=== PATIENT | female | born 1990 | race Caucasian/White ===

== ENCOUNTER 2021-02-25 22:19 | Emergency (ER) | payer SELFPAY ==
[~2021-02-25] VITALS: Ht 170.2 cm; Wt 63.6 kg
[~2021-02-25 22:19] MED LIST: NITR100C62 PO; Sulfamethoxazole/Trimethoprim PO
[2021-02-26] MEDS ORDERED: MORPHINE SULFATE 10 MG/ML VIAL. IV ONE (00:30)
[2021-02-26] MEDS ORDERED: IV NORMAL SALINE 1000ML BAG 1,000 ML IV ONE (00:30)
[2021-02-26] MEDS ORDERED: ONDANSETRON PF 4 MG/2 ML VIAL. IVP ONE (00:30)
[2021-02-26 00:39] LABS: BASO # 0.1 x10^3/uL (0.0-0.2); BASO % 1 % (0-3); EOS # 0.2 x10^3/uL (0.0-0.7); EOS % 2 % (0-3); HEMATOCRIT 43.6 % (36.0-47.0); HEMOGLOBIN 15.5 g/dL (12.0-15.5); LYMPH # 2.1 x10^3/uL (1.0-4.8); LYMPH % 21 % (24-48); MEAN CORPUSCULAR HEMOGLOBIN 33 pg (25-35); MEAN CORPUSCULAR HGB CONC 36 g/dL (31-37); MEAN CORPUSCULAR VOLUME 93 fL (79-100); MONO # 0.6 x10^3/uL (0.0-1.1); MONO % 6 % (0-9); NEUT % 71 % (31-73); PLATELET COUNT 252 x10^3/uL (140-400); RED BLOOD COUNT 4.68 x10^6/uL (3.50-5.40); RED CELL DISTRIBUTION WIDTH 13.1 % (11.5-14.5); WHITE BLOOD COUNT 9.8 x10^3/uL (4.0-11.0)
[2021-02-26 00:45] LABS: CALCIUM 9.2 mg/dL (8.5-10.1); CREATININE 0.9 mg/dL (0.6-1.0); GFR 74.6
--- NOTE | 2021-02-26 00:48 | RAD ---
CT ABDOMEN+PELVIS WO History: Reason: abd pain / Spl. Instructions: / History: Technique: Noncontrast examination of the abdomen and pelvis. Coronal and sagittal reconstructions we re performed. Exposure: One or more of the following individualized dose reduction techniques were utilized for thi s examination: 1. Automated exposure control 2. Adjustment of the mA and/or kV according to patient size 3. Use of iterative reconstruction technique. Comparison: None Findings: Lower chest: No consolidation or pleural effusion. Abdomen and pelvis: The liver, spleen, adrenal glands, and pancreas are unremarkable. Contracted gall bladder. No biliary ductal dilatation. No hydronephrosis. No renal, ureteral or urinary bladder calculi. Phlebolith within the region of the left distal ureter degrading evaluation. Decompressed urinary bladder. Normal appendix. No evidence of bowel obstruction. No pathologic lymphadenopathy. No ascites. Bones: No pathologic osseous lesions. Impression: 1. No acute abdominal or pelvic pathology. Electronically signed by: Arturo Galvez DO (02/26/2021 12:46 AM) [facility]
[2021-02-26 00:51] LABS: ALBUMIN 3.9 g/dL (3.4-5.0); ALBUMIN/GLOBULIN RATIO 1.1 (1.0-1.7); MAGNESIUM 1.9 mg/dL (1.8-2.4); TOTAL BILIRUBIN 0.3 mg/dL (0.2-1.0); TOTAL PROTEIN 7.3 g/dL (6.4-8.2)
[2021-02-26 01:35] VITALS: BP 106/54
[2021-02-26 08:32] LABS: AMPHETAMINE/METHAMPHETAMINE NEG (NEG); BARBITURATES NEG (NEG); BENZODIAZEPINES NEG (NEG); CANNABINOIDS POS (NEG); COCAINE NEG (NEG); METHADONE NEG (NEG); OPIATES POS (NEG); PHENCYCLIDINE NEG (NEG)
[2021-02-26 08:34] LABS: BACTERIA,URINE 0 /HPF (0-FEW); BILIRUBIN,URINE NEGATIVE (NEG); CLARITY,URINE CLEAR; COLOR,URINE YELLOW; NITRITE,URINE NEGATIVE (NEG); PROTEIN,URINE NEGATIVE (NEG-TRACE); RBC,URINE RARE /HPF (0-2); UROBILINOGEN,URINE 0.2 mg/dL (0.2 mg/dL)
--- NOTE | 2021-02-26 22:04 | ED.ADGEN ---
Past Medical History Past Medical History: Asthma, Bipolar, Depression, Migraines, Other Additional Past Medical Histor: spontaneous AB Past Surgical History: Other Additional Past Surgical Histo: d&c, Smoking Status: Current Some Day Smoker Alcohol Use: None Drug Use: None General Adult EDM: Chief Complaint: FLANK PAIN HPI: HPI: Patient is a 30-year-old female who presents to the emergency room complaining of severe flank pain and lower abdominal pain. This is been ongoing for the last 2 to 3 days. She states her urine has been dark and she has had some dysuria. She denies any fevers, chills, sweats, chest pain. She has had a mild cough. She is unsure if this is related to her allergies. She has had some nausea with a single episode of vomiting. She has been eating without difficulty. She has had some mild diarrhea. She states that her abdominal pain is a dull and sometimes sharp pain in nature. She woke up with it a few days ago. Review of Systems: Review of Systems: Complete ROS is negative unless otherwise documented in HPI Current Medications: Current Medications Medications (Trade) Dose Ordered Sig/Nayeli Start Time Stop Time Status Last Admin Dose Admin Morphine Sulfate (Morphine Sulfate) 5 mg 1X ONCE 02/26/21 00:30 02/26/21 00:31 DC 02/26/21 00:31 5 MG Ondansetron HCl (Zofran) 4 mg 1X ONCE 02/26/21 00:30 02/26/21 00:31 DC 02/26/21 00:31 4 MG Sodium Chloride 1,000 ml @ 1,000 mls/hr 1X ONCE 02/26/21 00:30 02/26/21 05:57 DC 02/26/21 00:30 1,000 MLS/HR Allergies: Allergies: Allergies Coded Allergies Type Severity Reaction Last Updated Verified Penicillins Allergy Severe 02/25/21 Yes amoxicillin Allergy Severe hives 07/23/14 No Physical Exam: PE: General: Awake, alert, mild distress. Well Nourished, well hydrated. Cooperative HEENT: Atraumatic, EOMI, PERRL, airway patent, dry oral mucosa Neck: Supple, trachea midline Respiratory: CTA bilaterally, normal effort, no wheezing/crackles CV: Tachycardia, no murmur, cap refill <2 GI: Soft, nondistended, nontender, no masses MSK: No obvious deformities Skin: Warm, dry, intact Neuro: A&O x3, speech NL, sensory and motor grossly intact, no focal deficits Psych: Anxious, not suicidal or homicidal Current Patient Data: Labs: Laboratory Tests Test 02/26/21 00:30 02/26/21 01:20 02/26/21 01:25 White Blood Count 9.8 x10^3/uL (4.0-11.0) Red Blood Count 4.68 x10^6/uL (3.50-5.40) Hemoglobin 15.5 g/dL (12.0-15.5) Hematocrit 43.6 % (36.0-47.0) Mean Corpuscular Volume 93 fL (79-100) Mean Corpuscular Hemoglobin 33 pg (25-35) Mean Corpuscular Hemoglobin Concent 36 g/dL (31-37) Red Cell Distribution Width 13.1 % (11.5-14.5) Platelet Count 252 x10^3/uL (140-400) Neutrophils (%) (Auto) 71 % (31-73) Lymphocytes (%) (Auto) 21 % (24-48) L Monocytes (%) (Auto) 6 % (0-9) Eosinophils (%) (Auto) 2 % (0-3) Basophils (%) (Auto) 1 % (0-3) Neutrophils # (Auto) 7.0 x10^3/uL (1.8-7.7) Lymphocytes # (Auto) 2.1 x10^3/uL (1.0-4.8) Monocytes # (Auto) 0.6 x10^3/uL (0.0-1.1) Eosinophils # (Auto) 0.2 x10^3/uL (0.0-0.7) Basophils # (Auto) 0.1 x10^3/uL (0.0-0.2) Sodium Level 142 mmol/L (136-145) Potassium Level 4.0 mmol/L (3.5-5.1) Chloride Level 104 mmol/L (98-107) Carbon Dioxide Level 28 mmol/L (21-32) Anion Gap 10 (6-14) Blood Urea Nitrogen 14 mg/dL (7-20) Creatinine 0.9 mg/dL (0.6-1.0) Estimated GFR (Cockcroft-Gault) 74.6 BUN/Creatinine Ratio 16 (6-20) Glucose Level 82 mg/dL (70-99) Calcium Level 9.2 mg/dL (8.5-10.1) Magnesium Level 1.9 mg/dL (1.8-2.4) Total Bilirubin 0.3 mg/dL (0.2-1.0) Aspartate Amino Transferase (AST) 20 U/L (15-37) Alanine Aminotransferase (ALT) 22 U/L (14-59) Alkaline Phosphatase 68 U/L (46-116) Total Protein 7.3 g/dL (6.4-8.2) Albumin 3.9 g/dL (3.4-5.0) Albumin/Globulin Ratio 1.1 (1.0-1.7) Lipase 85 U/L (73-393) Urine Collection Type Unknown Urine Color Yellow Urine Clarity Clear Urine pH 7.0 (<5.0-8.0) Urine Specific [place] 1.015 (1.000-1.030) Urine Protein Negative mg/dL (NEG-TRACE) Urine Glucose (UA) Negative mg/dL (NEG) Urine Ketones (Stick) Negative mg/dL (NEG) Urine Blood Trace (NEG) Urine Nitrite Negative (NEG) Urine Bilirubin Negative (NEG) Urine Urobilinogen Dipstick 0.2 mg/dL (0.2 mg/dL) Urine Leukocyte Esterase Trace (NEG) Urine RBC Rare /HPF (0-2) Urine WBC 1-4 /HPF (0-4) Urine Squamous Epithelial Cells Mod /LPF Urine Bacteria 0 /HPF (0-FEW) Urine Opiates Screen Pos (NEG) Urine Methadone Screen Neg (NEG) Urine Barbiturates Neg (NEG) Urine Phencyclidine Screen Neg (NEG) Urine Amphetamine/Methamphetamine Neg (NEG) Urine Benzodiazepines Screen Neg (NEG) Urine Cocaine Screen Neg (NEG) Urine Cannabinoids Screen Pos (NEG) Urine Ethyl Alcohol Neg (NEG) POC Urine HCG, Qualitative Hcg negative (Negative) Laboratory Tests 02/26/21 00:30 Laboratory Tests 02/26/21 00:30 Vital Signs: Vital Signs Date Time Temp Pulse Resp B/P (MAP) Pulse Ox O2 Delivery O2 Flow Rate FiO2 02/26/21 01:35 56 24 106/54 (71) 97 02/26/21 00:31 Room Air 02/25/21 23:00 98.9 98.9 EKG: EKG: [] Heart Score: C/O Chest Pain: N/A Risk Factors: Risk Factors: DM, Current or recent (<one month) smoker, HTN, HLP, family history of CAD, obesity. Risk Scores: Score 0 - 3: 2.5% MACE over next 6 weeks - Discharge Home Score 4 - 6: 20.3% MACE over next 6 weeks - Admit for Clinical Observation Score 7 - 10: 72.7% MACE over next 6 weeks - Early Invasive Strategies Radiology/Procedures: Radiology/Procedures: [] Course & Med Decision Making: Course & Med Decision Making Pertinent Labs and Imaging studies reviewed. (See chart for details) patient is a 30-year-old female who presents to the emergency room complaining of right flank pain, nausea, dysuria. Patient's presentation is concerning for possible kidney stone versus pyelonephritis. Patient does have a mild cough and it is possible this could also be related to viral syndrome not excluding coronavirus 19. Patient is requesting something for pain. Patient was given pain medication, nausea medicine, fluids. Lab work is reassuring and CT does not show signs of a kidney stone or pyelonephritis. Urine does not show signs of a UTI. She is positive for opiates and cannabinoids. It is possible this could be related to a cyclic vomiting syndrome. Patient requested to leave AMA. Patient has requested to leave AGAINST MEDICAL ADVICE. I have discussed the benefits of staying for a full work up and the patient would like to leave. I discussed the risks of leaving including but not limited to , permenant end-organ damage, worsening of condition and patient stated understanding. Patient signed out against medical advice. Didi Disclaimer: Didi Disclaimer: This electronic medical record was generated, in whole or in part, using a voice recognition dictation system. Departure Departure Impression: Primary Impression: Flank pain Disposition: LEFT AGAINST MEDICAL ADVICE Condition: STABLE Referrals: NO PCP (PCP) ANA GALLARDO MD Feb 26, 2021 22:04
== END 2021-02-26 02:35 | disposition left against medical advice (07) ==
LOC: ER 22:19
DX: R10.31 Right lower quadrant pain (principal); R30.0 Dysuria; F31.9 Bipolar disorder, unspecified; G43.909 Migraine, unspecified, not intractable, without status migrainosus; J45.909 Unspecified asthma, uncomplicated; F17.200 Nicotine dependence, unspecified, uncomplicated; Z88.0 Allergy status to penicillin; Z88.1 Allergy status to other antibiotic agents
CPT/HCPCS: 36415; 74176; 80053; 80307; 81001; 81025; 83690; 83735; 85025; 96361; 96374; 96375; 99285; J2270; J2405; J7030

== ENCOUNTER 2021-05-12 11:30 | Emergency (ER) | payer SELFPAY ==
[~2021-05-12] VITALS: Ht 167.6 cm; Wt 61.4 kg
--- NOTE | 2021-05-12 13:07 | PHYS DOC ---
Past Medical History Past Medical History: Asthma, Bipolar, Depression, Migraines, Other Additional Past Medical Histor: spontaneous AB Past Surgical History: No Surgical History, Other Additional Past Surgical Histo: d&c, Smoking Status: Current Some Day Smoker Alcohol Use: None Drug Use: None General Adult EDM: Chief Complaint: ABDOMINAL PAIN HPI: HPI: 30-year-old female with a history of IBS presents the emergency department complaining of right lower quadrant abdominal pain, nausea for the past 5 days. 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 She admits to breathing heavily makes her pain worse. She reports she is also having pain in the left flank and right flank area. The patient denies nausea, vomiting, fever, chills, chest pain, shortness of breath, urinary problems, cough, recent trauma, stool changes, or any other complaints. Review of Systems: Review of Systems: Review of systems as above otherwise negative except for what was mentioned in the HPI Heart Score: C/O Chest Pain: No Family History: Family History: non contributory Allergies: Allergies: Allergies Coded Allergies Type Severity Reaction Last Updated Verified Penicillins Allergy Severe 02/25/21 Yes amoxicillin Allergy Severe hives 07/23/14 No Physical Exam: PE: Constitutional: No acute distress, non-toxic appearance. HENT: Atraumatic, bilateral external ears normal, nose normal. Eyes: PERRLA, EOMI, conjunctiva normal, no discharge. Neck: Normal range of motion, supple, no stridor. Cardiovascular: Heart rate regular rhythm. 2+ radial pulses Lungs & Thorax: No respiratory distress, symmetrical expansion. Bilateral breath sounds clear to auscultation Abdomen: Right lower quadrant tenderness palpation Skin: Warm, dry. Extremities: No tenderness, no cyanosis, ROM intact, no edema. Neurologic: Alert and oriented X 3, normal motor function, normal sensory function, no focal deficits noted. GCS 15. Psychologic: Affect normal, judgment normal, mood normal. Current Patient Data: Labs: Laboratory Tests Test 05/12/21 12:08 05/12/21 12:34 05/12/21 13:42 Urine Collection Type Unknown Urine Color Yellow Urine Clarity Clear Urine pH 7.0 (<5.0-8.0) Urine Specific [place] 1.020 (1.000-1.030) Urine Protein Negative mg/dL (NEG-TRACE) Urine Glucose (UA) Negative mg/dL (NEG) Urine Ketones (Stick) Negative mg/dL (NEG) Urine Blood Small (NEG) Urine Nitrite Negative (NEG) Urine Bilirubin Negative (NEG) Urine Urobilinogen Dipstick 1.0 mg/dL (0.2 mg/dL) Urine Leukocyte Esterase Moderate (NEG) Urine RBC 1-2 /HPF (0-2) Urine WBC 11-20 /HPF (0-4) Urine Squamous Epithelial Cells Mod /LPF Urine Bacteria Moderate /HPF (0-FEW) Urine Mucus Mod /LPF Bedside Urine HCG, Qualitative Hcg negative (Negative) White Blood Count 8.7 x10^3/uL (4.0-11.0) Red Blood Count 4.44 x10^6/uL (3.50-5.40) Hemoglobin 14.2 g/dL (12.0-15.5) Hematocrit 41.3 % (36.0-47.0) Mean Corpuscular Volume 93 fL (79-100) Mean Corpuscular Hemoglobin 32 pg (25-35) Mean Corpuscular Hemoglobin Concent 34 g/dL (31-37) Red Cell Distribution Width 13.4 % (11.5-14.5) Platelet Count 221 x10^3/uL (140-400) Neutrophils (%) (Auto) 80 % (31-73) Lymphocytes (%) (Auto) 10 % (24-48) Monocytes (%) (Auto) 8 % (0-9) Eosinophils (%) (Auto) 2 % (0-3) Basophils (%) (Auto) 1 % (0-3) Neutrophils # (Auto) 6.9 x10^3/uL (1.8-7.7) Lymphocytes # (Auto) 0.9 x10^3/uL (1.0-4.8) Monocytes # (Auto) 0.7 x10^3/uL (0.0-1.1) Eosinophils # (Auto) 0.1 x10^3/uL (0.0-0.7) Basophils # (Auto) 0.0 x10^3/uL (0.0-0.2) Sodium Level 139 mmol/L (136-145) Potassium Level 3.9 mmol/L (3.5-5.1) Chloride Level 104 mmol/L (98-107) Carbon Dioxide Level 29 mmol/L (21-32) Anion Gap 6 (6-14) Blood Urea Nitrogen 6 mg/dL (7-20) Creatinine 0.8 mg/dL (0.6-1.0) Estimated GFR (Cockcroft-Gault) 85.4 BUN/Creatinine Ratio 8 (6-20) Glucose Level 75 mg/dL (70-99) Calcium Level 8.9 mg/dL (8.5-10.1) Total Bilirubin 0.3 mg/dL (0.2-1.0) Aspartate Amino Transf (AST/SGOT) 17 U/L (15-37) Alanine Aminotransferase (ALT/SGPT) 23 U/L (14-59) Alkaline Phosphatase 82 U/L (46-116) Total Protein 7.9 g/dL (6.4-8.2) Albumin 3.4 g/dL (3.4-5.0) Albumin/Globulin Ratio 0.8 (1.0-1.7) Lipase 97 U/L (73-393) Vital Signs: Vital Signs Date Time Temp Pulse Resp B/P (MAP) Pulse Ox O2 Delivery O2 Flow Rate FiO2 05/12/21 14:10 16 99 Room Air 05/12/21 13:00 98.4 68 16 112/61 98 Room Air 98.4 Radiology/Procedures: Radiology/Procedures: CT ABDOMEN+PELVIS W History: abdominal pain rlq Comparison: 02/25/2021 Technique: After administration of intravenous contrast, helical CT of the abdomen and pelvis was performed from the lung bases through the ischial tu berosities. Coronal and sagittal reconstructions were obtained. 75 mL of Omnipaque 300 were used. One or more of the following dose reduction techniques were utilized: Automated exposure control (AEC), Adjustment of mA and/or kV according to patient size, Use of iterative reconstruction technique such as ASiR, CT scan done according to ALARA and image gently/image wisely Abdomen Findings: The visualized lung bases are clear. The liver, gallbladder, pancreas, spleen, and bilateral adrenal glands are normal. Symmetric renal enhancement. There is no focal renal mass. There is no hydronephrosis. The visualized loops of small bowel are normal. The visualized loops of large bowel are normal. There is no evidence of bowel obstruction. Appendix is normal. There is no free fluid. There is no mesenteric or retroperitoneal adenopathy. The abdominal aorta is normal in caliber. Pelvis Findings: Urinary bladder is normal. Uterus is present No pelvic free fluid. There is no pelvic or inguinal adenopathy. There is no acute bony abnormality. IMPRESSION: No acute findings. Normal appendix. Electronically signed by: Hemanth Justin MD (05/12/2021 3:45 PM) Course & Med Decision Making: Course & Med Decision Making Work-up as above is unremarkable, patient was given antispasmodic and will be given prescription for that and Zofran for home. Advised to follow-up with a ems manager and was referred to the GI doctor. No further concerns at the time of discharge. Patient appears well. Patient believes this is IBS that is flaring up. She has no symptoms suggestive of UTI. My Orders - JACQUELYN QUESADA DO Procedure Category Date Status Time Vital Signs Monitoring ER 05/12/21 Transmitted 13:01 Cardiac Monitoring ER 05/12/21 Transmitted 13:01 Continuous Pulse Ox ER 05/12/21 Transmitted 13:01 Cbc W [facility] LAB 05/12/21 Complete 13:01 Ua, Cult If Indicated LAB 05/12/21 Complete 13:01 Lipase LAB 05/12/21 Complete 13:01 Comprehensive LAB 05/12/21 Complete Metabolic Panel 13:01 Ct Abd Pelv W/ Iv CT 05/12/21 Resulted Contrst Only 13:01 Urine Test [facility] 05/12/21 Complete 13:01 Pulse Oximetry: [facility] 05/12/21 Complete Standing Order 13:01 Iv Normal Saline PHA 05/12/21 Complete 1000ml Bag (Iv Sodium 13:15 Fentanyl Pf Vial PHA 05/12/21 Complete (Fentanyl 2ml Vial) 13:15 Ondansetron Pf PHA 05/12/21 Complete (Zofran) 13:15 Chest Ap Only RAD 05/12/21 Resulted 13:01 Urine Culture AMI 05/12/21 In Process 13:25 Iohexol 300 Mg/Ml PHA 05/12/21 Complete (Omnipaque 300 Mg/Ml) 14:45 Contrast Given -- PHA 05/12/21 Complete Info Only (Contrast Gi 14:45 Dicyclomine Hcl PHA 05/12/21 Complete (Bentyl) 16:15 Departure Departure Impression: Primary Impression: Abdominal pain Disposition: HOME / SELF CARE / HOMELESS Condition: GOOD Referrals: NO PCP (PCP) NAGEL,AKASH F MD Patient Instructions: Irritable Bowel Syndrome-Brief Additional Instructions: You were seen in the emergency department for abdominal pain. Your tests did not show any obvious acute cause of your symptoms and your physical exam was non concerning for a dangerous disease process at this time. This however can change early in a disease course. You must return to the ED if you develop any new or worrisome symptoms for another exam. - Make sure to drink plenty of fluids at home - You may take a gentle laxative such as Miralax (over the counter) for bowel comfort. - Avoid drinking alcohol while you are having abdominal pain as this may worsen symptoms. - Return to the ER if you are not able to tolerate water and/or a normal diet, have increased pain or a change in character of your pain, develop a fever (>100.3 F), have nausea, vomiting and/or diarrhea that is unable to be treated at home, pass out, and/or you are not able to perform you normal daily activity. Scripts Ondansetron Hcl (ONDANSETRON HCL) 4 Mg Tablet 4 MG PO BID PRN for NAUSEA/VOMITING for 7 Days, #14 TAB Prov: JACQUELYN QUESADA DO 05/12/21 Dicyclomine Hcl (DICYCLOMINE HCL) 10 Mg Capsule 10 MG PO QID PRN for ABDOMINAL CRAMPS for 7 Days, #28 CAP Prov: JACQUELYN QUESADA DO 05/12/21 JACQUELYN QUESADA DO May 12, 2021 13:07
[2021-05-12] MEDS ORDERED: fentaNYL PF VIAL 100 MCG/2 ML VIAL IVP ONE (13:15)
[2021-05-12] MEDS ORDERED: ONDANSETRON PF 4 MG/2 ML VIAL. IVP ONE (13:15)
[2021-05-12] MEDS ORDERED: IV NORMAL SALINE 1000ML BAG 1,000 ML IV SCH (13:15)
[2021-05-12 13:17] LABS: BILIRUBIN,URINE NEGATIVE (NEG); CLARITY,URINE CLEAR; COLOR,URINE YELLOW; NITRITE,URINE NEGATIVE (NEG); PROTEIN,URINE NEGATIVE (NEG-TRACE)
[2021-05-12 13:24] LABS: BACTERIA,URINE MODERATE /HPF (0-FEW)
--- NOTE | 2021-05-12 13:28 | RAD ---
EXAM: Chest, single view. HISTORY: Pain. COMPARISON: None. FINDINGS: A frontal view of the chest is obtained. There is no infiltrate, pleural effusion or pneumo thorax. The heart is normal in size. IMPRESSION: No acute pulmonary finding. Electronically signed by: Shyla Lubin MD (05/12/2021 1:26 PM) [id number]
[2021-05-12 13:57] LABS: BASO % 1 % (0-3); EOS # 0.1 x10^3/uL (0.0-0.7); EOS % 2 % (0-3); HEMATOCRIT 41.3 % (36.0-47.0); HEMOGLOBIN 14.2 g/dL (12.0-15.5); LYMPH # 0.9 x10^3/uL (1.0-4.8); LYMPH % 10 % (24-48); MEAN CORPUSCULAR HEMOGLOBIN 32 pg (25-35); MEAN CORPUSCULAR HGB CONC 34 g/dL (31-37); MEAN CORPUSCULAR VOLUME 93 fL (79-100); MONO # 0.7 x10^3/uL (0.0-1.1); MONO % 8 % (0-9); NEUT # 6.9 x10^3/uL (1.8-7.7); NEUT % 80 % (31-73); PLATELET COUNT 221 x10^3/uL (140-400); RED BLOOD COUNT 4.44 x10^6/uL (3.50-5.40); RED CELL DISTRIBUTION WIDTH 13.4 % (11.5-14.5); WHITE BLOOD COUNT 8.7 x10^3/uL (4.0-11.0)
[2021-05-12 14:18] LABS: CALCIUM 8.9 mg/dL (8.5-10.1); CREATININE 0.8 mg/dL (0.6-1.0); GFR 85.4; POTASSIUM 3.9 mmol/L (3.5-5.1)
[2021-05-12 14:23] LABS: ALBUMIN 3.4 g/dL (3.4-5.0); ALBUMIN/GLOBULIN RATIO 0.8 (1.0-1.7); TOTAL BILIRUBIN 0.3 mg/dL (0.2-1.0); TOTAL PROTEIN 7.9 g/dL (6.4-8.2)
[2021-05-12] MEDS ORDERED: IOHEXOL 300 MG/ML 100ML VIAL. IV ONE (14:45)
[2021-05-12] MEDS ORDERED: CONTRAST GIVEN. MC PRN (14:45)
--- NOTE | 2021-05-12 15:48 | RAD ---
CT ABDOMEN+PELVIS W History: abdominal pain rlq Comparison: 02/25/2021 Technique: After administration of intravenous contrast, helical CT of the abdomen and pelvis was per formed from the lung bases through the ischial tuberosities. Coronal and sagittal reconstructions wer e obtained. 75 mL of Omnipaque 300 were used. One or more of the following dose reduction techniques were utilized: Automated exposure control (AEC), Adjustment of mA and/or kV according to patient size , Use of iterative reconstruction technique such as ASiR, CT scan done according to ALARA and image g ently/image wisely Abdomen Findings: The visualized lung bases are clear. The liver, gallbladder, pancreas, spleen, and bilateral adrenal glands are normal. Symmetric renal enhancement. There is no focal renal mass. There is no hydronephrosis. The visualized loops of small bowel are normal. The visualized loops of large bowel are normal. There is no evidence of bowel obstruction. Appendix is normal. There is no free fluid. There is no mesenteric or retroperitoneal adenopathy. The abdominal aorta is normal in caliber. Pelvis Findings: Urinary bladder is normal. Uterus is present No pelvic free fluid. There is no pelvic or inguinal jessie nopathy. There is no acute bony abnormality. IMPRESSION: No acute findings. Normal appendix. Electronically signed by: Hemanth Justin MD (05/12/2021 3:45 PM) [facility]
[2021-05-12] MEDS ORDERED: DICY10CA3 PO (16:13)
[2021-05-12] MEDS ORDERED: ONDA-84 PO (16:13)
[2021-05-12] MEDS ORDERED: DICYCLOMINE HCL 10 MG CAPSULE PO ONE (16:15)
[2021-05-12 16:21] VITALS: BP 103/60
== END 2021-05-12 16:30 | disposition home or self-care (01) ==
LOC: ER 11:30
DX: R10.31 Right lower quadrant pain (principal); R11.0 Nausea; F31.9 Bipolar disorder, unspecified; J45.909 Unspecified asthma, uncomplicated; G43.909 Migraine, unspecified, not intractable, without status migrainosus; F17.200 Nicotine dependence, unspecified, uncomplicated; Z88.0 Allergy status to penicillin; Z88.1 Allergy status to other antibiotic agents
CPT/HCPCS: 36415; 71045; 74177; 80053; 81001; 81025; 83690; 85025; 87086; 96361; 96374; 96375; 99285; J2405; J3010; J7030; Q9967

== ENCOUNTER 2021-11-22 04:21 | Emergency (ER) | payer SELFPAY ==
[~2021-11-22] VITALS: Ht 157.5 cm; Wt 65.0 kg
[~2021-11-22 04:21] MED LIST changes: +DICY10CA3 PO; +ONDA-84 PO
[2021-11-22 04:41] LABS: BASO % 0 % (0-3); EOS # 0.2 x10^3/uL (0.0-0.7); EOS % 2 % (0-3); HEMATOCRIT 39.7 % (36.0-47.0); HEMOGLOBIN 13.5 g/dL (12.0-15.5); LYMPH # 1.6 x10^3/uL (1.0-4.8); LYMPH % 18 % (24-48); MEAN CORPUSCULAR HEMOGLOBIN 31 pg (25-35); MEAN CORPUSCULAR HGB CONC 34 g/dL (31-37); MEAN CORPUSCULAR VOLUME 91 fL (79-100); MONO # 0.6 x10^3/uL (0.0-1.1); MONO % 6 % (0-9); NEUT # 6.6 x10^3/uL (1.8-7.7); NEUT % 74 % (31-73); PLATELET COUNT 261 x10^3/uL (140-400); RED BLOOD COUNT 4.35 x10^6/uL (3.50-5.40); RED CELL DISTRIBUTION WIDTH 13.5 % (11.5-14.5)
[2021-11-22] MEDS ORDERED: HYDROmorphone 2 MG/ML INJ. IVP ONE (04:45)
[2021-11-22 04:48] LABS: CALCIUM 9.2 mg/dL (8.5-10.1); CREATININE 0.8 mg/dL (0.6-1.0); GFR 85.4; POTASSIUM 4.1 mmol/L (3.5-5.1)
[2021-11-22 04:53] LABS: PREG TEST PT QUAL NEGATIVE (NEG)
[2021-11-22 04:54] LABS: ALBUMIN 4.2 g/dL (3.4-5.0); ALBUMIN/GLOBULIN RATIO 1.1 (1.0-1.7); TOTAL BILIRUBIN 0.3 mg/dL (0.2-1.0); TOTAL PROTEIN 8.2 g/dL (6.4-8.2)
[2021-11-22] MEDS ORDERED: ONDANSETRON PF 4 MG/2 ML VIAL. ONE (04:54)
[2021-11-22] MEDS ORDERED: ONDANSETRON PF 4 MG/2 ML VIAL. IVP ONE (05:00)
[2021-11-22 05:14] LABS: BILIRUBIN,URINE NEGATIVE (NEG); CLARITY,URINE CLEAR; COLOR,URINE YELLOW; NITRITE,URINE NEGATIVE (NEG); PH,URINE 6.5 (<5.0-8.0); PROTEIN,URINE NEGATIVE (NEG-TRACE); UROBILINOGEN,URINE 0.2 mg/dL (0.2 mg/dL)
[2021-11-22 05:18] LABS: BACTERIA,URINE 0 /HPF (0-FEW); WBC,URINE 0 /HPF (0-4)
[2021-11-22 05:22] LABS: BARBITURATES NEG (NEG); BENZODIAZEPINES NEG (NEG); CANNABINOIDS POS (NEG); COCAINE NEG (NEG); METHADONE NEG (NEG); OPIATES NEG (NEG); PHENCYCLIDINE NEG (NEG)
[2021-11-22 05:29] LABS: AMPHETAMINE/METHAMPHETAMINE NEG (NEG)
[2021-11-22] MEDS ORDERED: PROPOFOL 10 MG/ML (20ML) VIAL. IV ONE (05:30)
--- NOTE | 2021-11-22 05:43 | RAD ---
EXAM: XR EXAM OF ANKLE_RIGHT 3VIEWS 11/22/2021 4:45 AM CLINICAL INDICATION: Fall, deformity COMPARISON: None TECHNIQUE: 4 views of the right ankle FINDINGS: There is a trimalleolar fracture dislocation of the ankle. The oblique lateral malleolar f racture is displaced medially by one shaft width and angulated posteriorly and slightly laterally. Th e medial malleolar fragment is displaced medially by slightly more than one shaft width. A posterior malleolar fracture fragment measures 2.4 x 2.0 cm and is mildly displaced posteriorly. The talus is d islocated posteriorly relative to the tibia. There also appears to be rotation at the tibiotalar join t. There is circumferential soft tissue swelling. IMPRESSION: Displaced trimalleolar fracture-dislocation of ankle. Electronically signed by: Rosa Ablerts MD (11/22/2021 5:41 AM) [id number]
[2021-11-22] MEDS ORDERED: fentaNYL PF VIAL 100 MCG/2 ML VIAL IVP ONE (05:45)
[2021-11-22 05:46] VITALS: BP 116/77
--- NOTE | 2021-11-22 05:48 | ED.ADGEN ---
Past Medical History Past Medical History: Asthma, Bipolar, Depression, Migraines, Other Additional Past Medical Histor: spontaneous AB Past Surgical History: No Surgical History, Other Additional Past Surgical Histo: ORAL Smoking Status: Former Smoker Alcohol Use: Rarely Drug Use: None General Adult EDM: Chief Complaint: ANKLE PROBLEM HPI: HPI: Patient is a 30 year old female coming in for right ankle pain and swelling. Patient fell down about 6-7 metal stairs 3 hours prior to arrival. Patient drove back to town from which time since this is where her kids live. Denies any other injuries. States she had had about half a beer prior to the incident. Review of Systems: Review of Systems: All other systems within normal limits except for as noted in the HPI Current Medications: Current Medications Medications (Trade) Dose Ordered Sig/Nayeli Start Time Stop Time Status Last Admin Dose Admin Fentanyl Citrate (Fentanyl 2ml Vial) 75 mcg 1X ONCE 11/22/21 05:45 11/22/21 05:46 DC 11/22/21 05:48 75 MCG Hydromorphone HCl (Dilaudid) 1 mg 1X ONCE 11/22/21 04:45 11/22/21 04:46 DC 11/22/21 04:44 1 MG Ondansetron HCl (Zofran) 4 mg STK-MED ONCE 11/22/21 04:54 11/22/21 04:54 DC Propofol (Diprivan) 200 mg 1X ONCE 11/22/21 05:30 11/22/21 05:31 DC 11/22/21 05:25 200 MG Allergies: Allergies: Allergies Coded Allergies Type Severity Reaction Last Updated Verified Penicillins Allergy Intermediate 11/22/21 Yes amoxicillin Allergy Intermediate Hives 11/22/21 Yes Physical Exam: PE: Constitutional: Well developed, well nourished, no acute distress, non-toxic appearance. [] HENT: Normocephalic, atraumatic, bilateral external ears normal, nose normal. [] Eyes: PERRLA, conjunctiva normal, no discharge. [] Neck: No rigidity, supple, no stridor. [] Cardiovascular: Regular rate and rhythm, brisk cap refill [] Lungs & Thorax: Non labored symmetric respirations, no tachypnea or respiratory distress [] Abdomen: Soft, nondistended. Skin: Warm, dry, no erythema, no rash. [] Back: Unremarkable Extremities: No deformities, range of motion grossly intact, no lower extremity edema. Swelling and posterior deformity of right ankle. Pulses intact [] Neurologic: Alert and oriented X 3, no focal deficits noted. [] Psychologic: Affect normal, judgement normal, mood normal. [] Current Patient Data: Labs: Laboratory Tests Test 11/22/21 04:35 11/22/21 05:05 White Blood Count 9.0 x10^3/uL (4.0-11.0) Red Blood Count 4.35 x10^6/uL (3.50-5.40) Hemoglobin 13.5 g/dL (12.0-15.5) Hematocrit 39.7 % (36.0-47.0) Mean Corpuscular Volume 91 fL (79-100) Mean Corpuscular Hemoglobin 31 pg (25-35) Mean Corpuscular Hemoglobin Concent 34 g/dL (31-37) Red Cell Distribution Width 13.5 % (11.5-14.5) Platelet Count 261 x10^3/uL (140-400) Neutrophils (%) (Auto) 74 % (31-73) H Lymphocytes (%) (Auto) 18 % (24-48) L Monocytes (%) (Auto) 6 % (0-9) Eosinophils (%) (Auto) 2 % (0-3) Basophils (%) (Auto) 0 % (0-3) Neutrophils # (Auto) 6.6 x10^3/uL (1.8-7.7) Lymphocytes # (Auto) 1.6 x10^3/uL (1.0-4.8) Monocytes # (Auto) 0.6 x10^3/uL (0.0-1.1) Eosinophils # (Auto) 0.2 x10^3/uL (0.0-0.7) Basophils # (Auto) 0.0 x10^3/uL (0.0-0.2) Sodium Level 143 mmol/L (136-145) Potassium Level 4.1 mmol/L (3.5-5.1) Chloride Level 106 mmol/L (98-107) Carbon Dioxide Level 23 mmol/L (21-32) Anion Gap 14 (6-14) Blood Urea Nitrogen 9 mg/dL (7-20) Creatinine 0.8 mg/dL (0.6-1.0) Estimated GFR (Cockcroft-Gault) 85.4 BUN/Creatinine Ratio 11 (6-20) Glucose Level 101 mg/dL (70-99) H Calcium Level 9.2 mg/dL (8.5-10.1) Total Bilirubin 0.3 mg/dL (0.2-1.0) Aspartate Amino Transferase (AST) 20 U/L (15-37) Alanine Aminotransferase (ALT) 21 U/L (14-59) Alkaline Phosphatase 70 U/L (46-116) Total Protein 8.2 g/dL (6.4-8.2) Albumin 4.2 g/dL (3.4-5.0) Albumin/Globulin Ratio 1.1 (1.0-1.7) Serum Test, Qualitative Negative (NEG) Ethyl Alcohol Level 54 mg/dL (0-10) H Urine Collection Type Unknown Urine Color Yellow Urine Clarity Clear Urine pH 6.5 (<5.0-8.0) Urine Specific Anson 1.015 (1.000-1.030) Urine Protein Negative mg/dL (NEG-TRACE) Urine Glucose (UA) Negative mg/dL (NEG) Urine Ketones (Stick) Negative mg/dL (NEG) Urine Blood Trace (NEG) Urine Nitrite Negative (NEG) Urine Bilirubin Negative (NEG) Urine Urobilinogen Dipstick 0.2 mg/dL (0.2 mg/dL) Urine Leukocyte Esterase Negative (NEG) Urine RBC 1-2 /HPF (0-2) Urine WBC 0 /HPF (0-4) Urine Squamous Epithelial Cells Few /LPF Urine Bacteria 0 /HPF (0-FEW) Urine Opiates Screen Neg (NEG) Urine Methadone Screen Neg (NEG) Urine Barbiturates Neg (NEG) Urine Phencyclidine Screen Neg (NEG) Urine Amphetamine/Methamphetamine Neg (NEG) Urine Benzodiazepines Screen Neg (NEG) Urine Cocaine Screen Neg (NEG) Urine Cannabinoids Screen Pos (NEG) Urine Ethyl Alcohol Pos (NEG) Laboratory Tests 11/22/21 04:35 Laboratory Tests 11/22/21 04:35 Vital Signs: Vital Signs Date Time Temp Pulse Resp B/P (MAP) Pulse Ox O2 Delivery O2 Flow Rate FiO2 11/22/21 05:48 16 100 Nasal Cannula 4.5 11/22/21 04:30 98.3 67 127/83 (98) 98.3 EKG: EKG: [] Heart Score: C/O Chest Pain: No Risk Factors: Risk Factors: DM, Current or recent (<one month) smoker, HTN, HLP, family history of CAD, obesity. Risk Scores: Score 0 - 3: 2.5% MACE over next 6 weeks - Discharge Home Score 4 - 6: 20.3% MACE over next 6 weeks - Admit for Clinical Observation Score 7 - 10: 72.7% MACE over next 6 weeks - Early Invasive Strategies Radiology/Procedures: Radiology/Procedures: Closed reduction of right ankle performed with moderate sedation with propofol. Splinted. Is just injury and patient's insurance status with orthopedics, Dr. Whitman. Patient states he will see the patient in his office in a few days for operative care, would like to have the swelling go down some before the procedure [address] [id number] IMAGING REPORT Signed PATIENT: NATHALIE VACA ACCOUNT: [id number] : 1990 LOCATION: ER AGE: 30 SEX: F EXAM STATUS: REG ER ORD. PHYSICIAN: ROSA MORALEZ MD REASON: reduction PROCEDURE: ANKLE RIGHT 2V EXAM: XR EXAM OF ANKLE_RIGHT 2 VIEWS 11/22/2021 5:40 AM CLINICAL INDICATION: Reduction COMPARISON: Right ankle radiograph 11/22/2021 at 4:46 AM TECHNIQUE: 2 views of the right ankle FINDINGS: There is been interval reduction of the tibiotalar dislocation, now in near normal alignment. Displaced trimalleolar fractures are improved in alignment. There is circumferential soft tissue swelling. A new splint is in place. IMPRESSION: Interval reduction of tibiotalar dislocation. Improved alignment of trimalleolar fractures. Electronically signed by: Rosa Alberts MD (11/22/2021 5:52 AM) [facility] DICTATED and SIGNED BY: ROSA ALBERTS MD DATE: 11/22/21 [id number] [id number] [place] [address] IMAGING REPORT Signed PATIENT: NATHALIE VACA ACCOUNT: [id number] : 1990 LOCATION: ER AGE: 30 SEX: F EXAM STATUS: REG ER ORD. PHYSICIAN: ROSA MORALEZ MD REASON: fall, deformity PROCEDURE: ANKLE RIGHT 3V EXAM: XR EXAM OF ANKLE_RIGHT 3VIEWS 11/22/2021 4:45 AM CLINICAL INDICATION: Fall, deformity COMPARISON: None TECHNIQUE: 4 views of the right ankle FINDINGS: There is a trimalleolar fracture dislocation of the ankle. The oblique lateral malleolar fracture is displaced medially by one shaft width and angulated posteriorly and slightly laterally. The medial malleolar fragment is displaced medially by slightly more than one shaft width. A posterior malleolar fracture fragment measures 2.4 x 2.0 cm and is mildly displaced posteriorly. The talus is dislocated posteriorly relative to the tibia. There also appears to be rotation at the tibiotalar joint. There is circumferential soft tissue swelling. IMPRESSION: Displaced trimalleolar fracture-dislocation of ankle. Electronically signed by: Rosa Alberts MD (11/22/2021 5:41 AM) [facility] DICTATED and SIGNED BY: ROSA ALBERTS MD DATE: 11/22/21 [id number] [] Course & Med Decision Making: Course & Med Decision Making Pertinent Labs and Imaging studies reviewed. (See chart for details) [] Dragon Disclaimer: Dragon Disclaimer: This electronic medical record was generated, in whole or in part, using a voice recognition dictation system. Departure Departure Impression: Primary Impression: Displaced trimalleolar fracture of right ankle Disposition: 01 HOME / SELF CARE / HOMELESS Condition: STABLE Referrals: DEJAH WHITMAN Jr. DO Patient Instructions: Ankle Fracture Scripts Polyethylene Glycol 3350 (MIRALAX) 119 Gm Powder 17 GM PO DAILY for constipation, #527 GM 0 Refills dissolve in water Prov: ROSA MORALEZ MD 11/22/21 Oxycodone/Apap 5-325 (PERCOCET 5-325 MG TABLET ) 1 Each Tablet 1 TAB PO PRN Q6HRS PRN for PAIN for 5 Days, #20 TAB 0 Refills Prov: ROSA MORALEZ MD 11/22/21 Ondansetron (ONDANSETRON ODT) 4 Mg Tab.rapdis 1 TAB PO PRN Q6-8HRS PRN for NAUSEA, #16 TAB Prov: ROSA MORALEZ MD 11/22/21 ROSA MORALEZ MD Nov 22, 2021 05:48
--- NOTE | 2021-11-22 05:55 | RAD ---
EXAM: XR EXAM OF ANKLE_RIGHT 2 VIEWS 11/22/2021 5:40 AM CLINICAL INDICATION: Reduction COMPARISON: Right ankle radiograph 11/22/2021 at 4:46 AM TECHNIQUE: 2 views of the right ankle FINDINGS: There is been interval reduction of the tibiotalar dislocation, now in near normal alignme nt. Displaced trimalleolar fractures are improved in alignment. There is circumferential soft tissue swelling. A new splint is in place. IMPRESSION: Interval reduction of tibiotalar dislocation. Improved alignment of trimalleolar fractur es. Electronically signed by: Rosa Alberts MD (11/22/2021 5:52 AM) [facility]
[2021-11-22] MEDS ORDERED: POLY119P4 PO (06:00)
[2021-11-22] MEDS ORDERED: ONDA4TAB12 PO (06:00)
[2021-11-22] MEDS ORDERED: OXYC1TAB15 PO (06:00)
[2021-11-22] MEDS ORDERED: crutches AC (06:13)
[2021-11-22] MEDS ORDERED: KETOROLAC 30 MG/ML VIAL. IVP ONE (07:00)
[2021-11-22] MEDS ORDERED: oxyCODONE/APAP 5/325 1 TAB TABLET PO ONE (07:00)
[2021-11-22 07:06] VITALS: BP 104/59
== END 2021-11-22 07:30 | disposition home or self-care (01) ==
LOC: ER 04:21
DX: S82.851A Displaced trimalleolar fracture of right lower leg, initial encounter for closed fracture (principal); F31.9 Bipolar disorder, unspecified; G43.909 Migraine, unspecified, not intractable, without status migrainosus; J45.909 Unspecified asthma, uncomplicated; Z87.891 Personal history of nicotine dependence; Z88.1 Allergy status to other antibiotic agents; Z88.0 Allergy status to penicillin; W10.8XXA Fall (on) (from) other stairs and steps, initial encounter; Y93.89 Activity, other specified; Y92.89 Other specified places as the place of occurrence of the external cause; Y99.8 Other external cause status
CPT/HCPCS: 27818; 36415; 73600; 73610; 80053; 80307; 81001; 84703; 85025; 96374; 96375; 99152; 99285; G0480; J1170; J1885; J2405; J2704; J3010